=== PATIENT | male | born 1955 | race Caucasian/White ===

== ENCOUNTER → 2016-09-09 | Outpatient (CLI) | payer BC ==
[~2016-09-09] MED LIST: ATOR10TA88 PO; CPR250 PO; CPR500 PO; FLM4 PO; GADAVIST IV PRN; PHEN-876 PO
--- NOTE | 2016-09-09 19:37 | DIAGNOSTIC IMAGING REPORT ---
MRI OF THE BRAIN WITHOUT AND WITH IV CONTRAST CLINICAL HISTORY: Vertigo. Headache. COMPARISON STUDY: MRI the brain June 21, 2007. TECHNIQUE: Utilizing a 1.5 Elaine magnet and dedicated coil, multiplanar, multiecho imaging of the brain was performed pre and postcontrast administration. IV administration of 6.5 mL of Gadavist contrast was uneventful. FINDINGS: There are no areas of restricted diffusion. No acute intracranial hemorrhage, midline shift or mass effect is present. Ventricular system is normal. Basilar cisterns are patent. There are no extra-axial collections. Flow-voids for the major intracranial vessels are present. There are no intracranial masses or areas of pathologic enhancement. A punctate periventricular T2 hypertense focus within the left parietal lobe is unchanged and prior exam of June 21, 2007. Calvarial signal is maintained. Orbits and sinuses are unremarkable. IMPRESSION: Unremarkable MRI of the brain. Electronically signed by: Ramesh Murrell M.D. 09/09/2016 7:36 PM Dictated Date/Time: 09/09/2016 7:27 PM
== END | disposition home or self-care (01) ==
LOC: C.MRI 18:29
PROVIDERS: ATTEND Internal Medicine
DX: R42 Dizziness and giddiness (principal); R51 Headache

== ENCOUNTER 2022-07-19 10:00 | Inpatient (IN) ==
[2022-07-19] MEDS ORDERED: SODIUM CHLORIDE 0.9% 1000ML 1,000 ML IV STA (10:10)
[2022-07-19] MEDS ORDERED: dilTIAZem HCl 5 MG/ML 5 ML VIAL IV STA ×2 (10:10→10:51)
[2022-07-19] MEDS ORDERED: ASPIRIN CHEW 324 MG PO STA (10:12)
--- NOTE | 2022-07-19 10:25 | Emergency Department Note ---
Impression & Plan Atrial fibrillation with rapid ventricular response, Chest pain, Abnormal EKG ED Provider Note NAME: CARL BLUNT AGE: 67 SEX: M : 1955 ARRIVES VIA: Walk-In INFORMANT: Patient, ED PROVIDER(S): Jett Simental DO CHIEF COMPLAINT: Fast heart rate HPI: The patient is a 67-year-old male who presented to the emergency department from his primary care physician's office. The patient scheduled an appointment to have a mole checked on his leg. When he was there he states that he reported to his primary care physician that he has been feeling lightheaded and dizzy especially after exercising. The patient had an EKG done at the office and was found to have a new onset narrow complex tachycardia. He states he does feel some chest discomfort. He also describes some worsening symptoms with exertion. He denies having any lower extremity swelling. He denies having any recent trauma. He has had no fever or cough. He states he has no history of dysrhythmia. The patient states he has been compliant with his outpatient med ications. He has had no recent illnesses including nausea vomiting or diarrhea. ROS: See above HPI for pertinent positives & negatives. A total of 10 systems reviewed and were otherwise negative. PAST MEDICAL HISTORY: See Below PAST SURGICAL HISTORY: See Below FAMILY HISTORY: See Below SOCIAL HISTORY: See Below HOME MEDICATIONS: See Below ALLERGIES: See Below VITALS: See Below PHYSICAL EXAMINATION: GENERAL: Patient is awake alert in no acute distress patient is resting comfortably and showing no signs of anxiety EYES: The conjunctivae are clear. The pupils are round and reactive. EARS, NOSE, MOUTH AND THROAT: The nose is without any evidence of any deformity. Mucous membranes are moist. Tongue is midline. NECK: The neck is nontender and supple. RESPIRATORY: Normal respiratory effort is noted there is no evidence of wheezing rhonchi or rales CARDIOVASCULAR: Tachycardic and regular heart sounds were noted to auscultation. There is no definite murmur. GASTROINTESTINAL: The abdomen is soft. Abdomen is nontender. MUSCULOSKELETAL/EXTREMITIES: There is no evidence of gross deformity full range of motion is noted in the hips and shoulders. SKIN: There is no obvious evidence of any rash. There are no petechiae, pallor or cyanosis noted. NEUROLOGIC: Patient is awake alert and oriented x3 MEDICAL DECISION MAKING: The patient is a 67-year-old male who presented to the emergency department for an evaluation of palpitations. The patient went to see his primary care physician for an unrelated issue. He was noted to have palpitations and lightheadedness. He had an EKG which showed a narrow complex tachycardia. The patient was treated with IV fluids and IV Cardizem in the emergency department. He was reevaluated multiple times. His heart rate had significantly improved but he still had atrial fibrillation. I discussed the patient's laboratory and radiographic studies with him. This is the first episode the patient's had of this. He does not take any medications for heart rate. This reason I discussed this case with the on-call [facility]ist. They have agreed to evaluate the patient in the emergency department for further management and disposition. Triage Nursing notes reviewed. Prior medical records reviewed Vital Signs: reviewed and remarkable for no significant abnormalities Differential diagnosis: Premature contractions, electrolyte abnormality, cardiac dysrhythmia, thyroid dysfunction, pulmonary embolism, infection, gastrointestinal, as well as other pathologies. ER treatment provided: See below Diagnostics interpreted by me: ECG: EKG was obtained in the emergency department. My interpretation is narrow complex tachycardia at [address] segment depressions were noted especially in the inferior leads. There was no PVCs noted. This was compared to a tracing from April 23, 2010 that the patient brought from his primary are physician's office. This tracing revealed sinus rhythm at 60 bpm Cardiac Monitoring: An order was placed for continuous cardiac monitoring. The monitor shows a rate of 64 bpm with sinus rhythm. Laboratory studies: As stated above and show below. Imaging studies: See below. I did independently review the patient's radiographic studies. Consultation(s): I discussed this case with Dr. Villasenor who is on-call for the [facility]ist group. ED COURSE: Procedures: Modified Valsalva was attempted in the emergency department without resolution of the narrow complex tachycardia. Critical Care: I have personally spent greater than 35 minutes of critical care time in the direct management of this patient. This includes bedside care, interpretation of diagnostic studies, and testing, discussion with consultants, patient, and family members, and other required patient management activities. This 35 minutes is in excess of all separately billable procedures. 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 Beliefs That Will Affect Care: None marital status: Current Living Situation: Spouse current occupational status: retired Feels Safe at Home: Yes caffeine: Yes Dental Care, Regularly: Yes Seatbelt Use: always Sunscreen Use: Yes Assistive Devices: Contacts and Glasses Allergies Allergies Allergy/AdvReac Type Severity Reaction Status Date / Time No Known Drug Allergies Allergy Verified 07/19/22 08:59 Home Meds Home Medications Medication Instructions Recorded Confirmed aspirin 81 mg tablet,delayed 81 mg PO Q OTHER DAY 01/20/20 07/19/22 release calcium carbonate 600 mg-vitamin 1 tab PO HS 07/19/22 07/19/22 D3 10 mcg (400 unit) tablet (Calcium 600 + D(3)) omega-3s 350 [id number] 1 cap PO HS 07/19/22 07/19/22 [id number] oil 600 mg capsule (Fish Oil) tadalafil 5 mg tablet 5 mg PO HS 07/19/22 07/19/22 Previous Rx's Medication Instructions Recorded atorvastatin 10 mg tablet 10 mg PO QPM #90 tabs 05/28/22 Results & Data (ED) Vital Signs Vital Signs - 24 hr 07/19/22 10:03 07/19/22 10:31 07/19/22 10:31 Temperature 36.3 C L Temperature Source Temporal Artery Scan Pulse Rate 138 H Pulse Rate [Right Finger] 138 H Pulse Rate from SpO2 Sensor Pulse Rhythm [Right Finger] Regular Pulse Strength [Right Finger] Normal Respiratory Rate 20 18 Respiratory Effort / Characteristics Non-Labored Non-Labored Respiratory Depth Normal Normal Respiratory Pattern Regular Blood Pressure 150/92 H Blood Pressure [Right Arm] 142/89 H Blood Pressure Mean 111 Blood Pressure Mean [Right Arm] 106 Blood Pressure Position [Right Arm] Lying Pulse Oximetry 98 98 Oxygen Delivery Method Room Air Room Air Room Air Sepsis Recent Fever Within 48 Hours No Sepsis New/Unexplained Change in Mental Status N/A Sepsis Action Taken by Nursing No Action Required 07/19/22 10:18 07/19/22 10:20 07/19/22 10:21 Temperature Temperature Source Pulse Rate 139 H 140 H Pulse Rate [Right Finger] Pulse Rate from SpO2 Sensor Pulse Rhythm [Right Finger] Pulse Strength [Right Finger] Respiratory Rate 14 18 Respiratory Effort / Characteristics Respiratory Depth Respiratory Pattern Blood Pressure 142/89 H Blood Pressure [Right Arm] Blood Pressure Mean 106 Blood Pressure Mean [Right Arm] Blood Pressure Position [Right Arm] Pulse Oximetry Oxygen Delivery Method Sepsis Recent Fever Within 48 Hours Sepsis New/Unexplained Change in Mental Status Sepsis Action Taken by Nursing 07/19/22 10:21 07/19/22 10:30 07/19/22 10:40 Temperature Temperature Source Pulse Rate 141 H 112 H 110 H Pulse Rate [Right Finger] Pulse Rate from SpO2 Sensor 141 H 123 H 110 H Pulse Rhythm [Right Finger] Pulse Strength [Right Finger] Respiratory Rate 14 18 10 L Respiratory Effort / Characteristics Respiratory Depth Respiratory Pattern Blood Pressure Blood Pressure [Right Arm] Blood Pressure Mean Blood Pressure Mean [Right Arm] Blood Pressure Position [Right Arm] Pulse Oximetry 99 98 98 Oxygen Delivery Method Sepsis Recent Fever Within 48 Hours Sepsis New/Unexplained Change in Mental Status Sepsis Action Taken by Nursing 07/19/22 10:50 07/19/22 11:06 07/19/22 11:07 Temperature Temperature Source Pulse Rate 114 H Pulse Rate [Right Finger] Pulse Rate from SpO2 Sensor 124 H 136 H Pulse Rhythm [Right Finger] Pulse Strength [Right Finger] Respiratory Rate 15 Respiratory Effort / Characteristics Respiratory Depth Respiratory Pattern Blood Pressure 129/97 Blood Pressure [Right Arm] Blood Pressure Mean 107 Blood Pressure Mean [Right Arm] Blood Pressure Position [Right Arm] Pulse Oximetry 98 98 Oxygen Delivery Method Sepsis Recent Fever Within 48 Hours Sepsis New/Unexplained Change in Mental Status Sepsis Action Taken by Nursing 07/19/22 11:07 07/19/22 11:10 07/19/22 11:10 Temperature Temperature Source Pulse Rate 116 H 139 H Pulse Rate [Right Finger] Pulse Rate from SpO2 Sensor 138 H 138 H Pulse Rhythm [Right Finger] Pulse Strength [Right Finger] Respiratory Rate 21 17 Respiratory Effort / Characteristics Respiratory Depth Respiratory Pattern Blood Pressure 129/100 Blood Pressure [Right Arm] Blood Pressure Mean 109 Blood Pressure Mean [Right Arm] Blood Pressure Position [Right Arm] Pulse Oximetry 93 99 Oxygen Delivery Method Sepsis Recent Fever Within 48 Hours Sepsis New/Unexplained Change in Mental Status Sepsis Action Taken by Shelter Medications Current Medication List: was personally reviewed by me Laboratory Data Attestation: I reviewed the patient's lab results. 07/19/22 10:20 07/19/22 10:20 Lab Results 07/19/22 07/19/22 07/19/22 Range/Units 10:20 10:20 10:20 WBC 5.90 (4.8-10.8) K/ul RBC 4.92 (4.63-6.08) M/uL Hgb 16.4 (14.0-18.0) g/dl Hct 46.3 (40.1-51.0) % MCV 94.1 (80.0-100.0) fL MCH 33.3 (25.0-34.0) pg MCHC 35.4 (32.0-36.0) g/dL RDW Std Deviation 41.1 (36.4-46.3) fL RDW Coeff of Estefany 11.8 (11.5-14.5) % Plt Count 352 (130-400) K/uL MPV 9.0 L (9.4-12.4) fL Immature Gran % (Auto) 0.2 % Neut % (Auto) 71.1 % Lymph % (Auto) 18.1 % Rice % (Auto) 9.2 % Eos % (Auto) 0.7 % Baso % (Auto) 0.7 % Neut # (Auto) 4.20 (1.4-6.5) K/uL Lymph # (Auto) 1.07 L (1.2-3.4) K/uL Rice # (Auto) 0.54 (0.24-0.82) K/uL Eos # (Auto) 0.04 (0-0.50) K/uL Baso # (Auto) 0.04 (0-0.2) K/uL Immature Gran # (Auto) 0.01 (0.00-0.02) K/uL PT 10.7 (9.0-12.0) Seconds INR 1.0 (0.9-1.1) APTT 26.3 (21.0-31.0) Seconds PTT Ratio 1.0 Sodium 133 L (136-145) mmol/L Potassium 4.7 (3.5-5.1) mmol/L Chloride 97 L (98-107) mmol/L Carbon Dioxide 29 (21-32) mmol/L Anion Gap 7 (3-11) BUN 14 (6-23) mg/dl Creatinine 0.89 (0.6-1.4) mg/dl Est Cr Clr Drug Dosing 70.9 ml/min Est GFR ( Amer) 104.0 ml/min Est GFR (Non-Af Amer) 89.7 ml/min BUN/Creatinine Ratio 15.7 (10-20) Glucose 138 H (70-99(Fasting)) mg/dl Calcium 9.6 (8.5-10.1) mg/dl Magnesium 2.1 (1.7-2.4) mg/dl Total Bilirubin 0.5 (0.2-1.0) mg/dl AST 25 (13-39) U/L ALT 21 (7-52) U/L Alkaline Phosphatase 52 (34-104) U/L Troponin I High Sens 13.2 (0-20) pg/ml Total Protein 7.7 (6.0-8.3) gm/dl Albumin 4.4 (3.4-5.0) gm/dl Globulin 3.3 (2.5-4.0) gm/dl Albumin/Globulin Ratio 1.3 (0.9-2) TSH (0.300-4.500) uIu/ml 07/19/22 Range/Units 10:20 WBC (4.8-10.8) K/ul RBC (4.63-6.08) M/uL Hgb (14.0-18.0) g/dl Hct (40.1-51.0) % MCV (80.0-100.0) fL MCH (25.0-34.0) pg MCHC (32.0-36.0) g/dL RDW Std Deviation (36.4-46.3) fL RDW Coeff of Estefany (11.5-14.5) % Plt Count (130-400) K/uL MPV (9.4-12.4) fL Immature Gran % (Auto) % Neut % (Auto) % Lymph % (Auto) % Rice % (Auto) % Eos % (Auto) % Baso % (Auto) % Neut # (Auto) (1.4-6.5) K/uL Lymph # (Auto) (1.2-3.4) K/uL Rice # (Auto) (0.24-0.82) K/uL Eos # (Auto) (0-0.50) K/uL Baso # (Auto) (0-0.2) K/uL Immature Gran # (Auto) (0.00-0.02) K/uL PT (9.0-12.0) Seconds INR (0.9-1.1) APTT (21.0-31.0) Seconds PTT Ratio Sodium (136-145) mmol/L Potassium (3.5-5.1) mmol/L Chloride (98-107) mmol/L Carbon Dioxide (21-32) mmol/L Anion Gap (3-11) BUN (6-23) mg/dl Creatinine (0.6-1.4) mg/dl Est Cr Clr Drug Dosing ml/min Est GFR ( Amer) ml/min Est GFR (Non-Af Amer) ml/min BUN/Creatinine Ratio (10-20) Glucose (70-99(Fasting)) mg/dl Calcium (8.5-10.1) mg/dl Magnesium (1.7-2.4) mg/dl Total Bilirubin (0.2-1.0) mg/dl AST (13-39) U/L ALT (7-52) U/L Alkaline Phosphatase (34-104) U/L Troponin I High Sens (0-20) pg/ml Total Protein (6.0-8.3) gm/dl Albumin (3.4-5.0) gm/dl Globulin (2.5-4.0) gm/dl Albumin/Globulin Ratio (0.9-2) TSH 1.689 (0.300-4.500) uIu/ml Administered Medications Discontinued Medications Aspirin (Aspirin Chew 324 Mg) 324 mg PO NOW STA Stop: 07/19/22 10:13 Last Admin: 07/19/22 10:26 Dose: 324 mg Documented By: AP Diltiazem HCl (Diltiazem Hcl 5 Mg/Ml 5 Ml Vial) 10 mg IV NOW STA Stop: 07/19/22 10:11 Last Admin: 07/19/22 10:27 Dose: 10 mg Documented By: AP Co-signed By: OL Diltiazem HCl (Diltiazem Hcl 5 Mg/Ml 5 Ml Vial) 10 mg IV NOW STA Stop: 07/19/22 10:52 Last Admin: 07/19/22 11:07 Dose: 10 mg Documented By: AP Co-signed By: NEGRITO Sodium Chloride (Nss 1000ml) 1,000 mls @ 999 mls/hr IV .Q1H1M STA Stop: 07/19/22 11:10 Last Infusion: 07/19/22 11:51 Dose: 0 mls/hr Documented By: Admin: 07/19/22 10:26 Dose: 999 mls/hr Documented By: AP Magnesium Sulfate/Dextrose (Magnesium Sulfate / D5w) 1 gm in 100 mls @ 100 mls/hr IV NOW STA Stop: 07/19/22 11:34 Last Infusion: 07/19/22 12:14 Dose: 0 mls/hr Documented By: Admin: 07/19/22 11:07 Dose: 100 mls/hr Documented By: AP Metoprolol Tartrate (Metoprolol Tartrate 1 Mg/Ml Vial) 5 mg IV NOW STA Stop: 07/19/22 11:51 Last Admin: 07/19/22 12:14 Dose: 5 mg Documented By: MIKE Nitroglycerin (Nitroglycerin Sl 0.4 Mg/Tab Tab) 0.4 mg SL NOW STA Stop: 07/19/22 12:01 Last Admin: 07/19/22 12:14 Dose: 0.4 mg Documented By: AP Imaging Data Radiologist's Impression: Chest X-Ray 07/19/22 10:10 XR chest 1V portable CLINICAL HISTORY: Dysrhythmia. COMPARISON STUDY: No previous studies for comparison. FINDINGS: Lung volumes are normal. Lungs are clear. There is no pneumothorax or pleural effusion. Cardiac size is normal. Mediastinal contours are normal. There is no evidence for pulmonary edema. IMPRESSION: No acute cardiopulmonary findings. ACT 112: Negative or not required by law. Electronically signed by: Ramesh Murrell M.D. 07/19/2022 10:44 AM Discharge Plan Visit Data Chief Complaint: Tachycardia Stated Complaint: ELEVATED HEART RATE, DR REF OVER ED Provider: Jett Simental Discharge Problem: Atrial fibrillation with rapid ventricular response, Chest pain, Abnormal EKG Patient Disposition: Being Evaluated by Hospitalist Discharge Instructions Interventions: ED Discharge Assessment Last Done: 07/19/22 15:28
[2022-07-19 10:33] LABS: Basophils # (auto) 0.04 K/uL (0-0.2); Basophils % (auto) 0.7 %; Eosinophils # (auto) 0.04 K/uL (0-0.50); Eosinophils % (auto) 0.7 %; Hematocrit (blood only) 46.3 % (40.1-51.0); Hemoglobin 16.4 g/dl (14.0-18.0); Immature Granulocytes # (auto) 0.01 K/uL (0.00-0.02); Immature Granulocytes % (auto) 0.2 %; Lymphocytes # (auto) 1.07 K/uL (1.2-3.4); Lymphocytes % (auto) 18.1 %; Mean Corpuscular Hemoglobin 33.3 pg (25.0-34.0); Mean Corpuscular Hgb Conc 35.4 g/dL (32.0-36.0); Mean Corpuscular Volume 94.1 fL (80.0-100.0); Monocytes # (auto) 0.54 K/uL (0.24-0.82); Monocytes % (auto) 9.2 %; Neutrophils % (auto) 71.1 %; Platelet Count 352 K/uL (130-400); RDW Coefficient of Variation 11.8 % (11.5-14.5); RDW Standard Deviation 41.1 fL (36.4-46.3); Red Blood Count 4.92 M/uL (4.63-6.08)
[2022-07-19] MEDS ORDERED: MAGNESIUM SULFATE / D5W 1 GM/100 ML BAG IV STA (10:35)
--- NOTE | 2022-07-19 10:45 | XRay Report ---
XR chest 1V portable CLINICAL HISTORY: Dysrhythmia. COMPARISON STUDY: No previous studies for comparison. FINDINGS: Lung volumes are normal. Lungs are clear. There is no pneumothorax or pleural effusion. Car diac size is normal. Mediastinal contours are normal. There is no evidence for pulmonary edema. IMPRESSION: No acute cardiopulmonary findings. ACT 112: Negative or not required by law. Electronically signed by: Ramesh Murrell M.D. 07/19/2022 10:44 AM
[2022-07-19 10:49] LABS: Partial Thromboplastin Time 26.3 Seconds (21.0-31.0); Prothrombin Time 10.7 Seconds (9.0-12.0)
[2022-07-19 10:58] LABS: Albumin Globulin Ratio 1.3 (0.9-2); Albumin Level 4.4 gm/dl (3.4-5.0); BUN Creatinine Ratio 15.7 (10-20); Bilirubin,Total 0.5 mg/dl (0.2-1.0); Calcium 9.6 mg/dl (8.5-10.1); Creatinine Clr Calc Pharmacy 70.9 ml/min; Est GFR (Non-African American) 89.7 ml/min; Globulin 3.3 gm/dl (2.5-4.0); Magnesium 2.1 mg/dl (1.7-2.4); Potassium 4.7 mmol/L (3.5-5.1); Total Protein 7.7 gm/dl (6.0-8.3); Troponin I High Sensitivity 13.2 pg/ml (0-20)
--- NOTE | 2022-07-19 11:09 | History & Physical Report ---
Date of Service July 19, 2022 Assessment & Plan (1) Atrial fibrillation with rapid ventricular response: Plan: New onset atrial fibrillation Patient with mild lightheadedness, was seen by PCP and found to have RVR of 150. No palpitations Intermittent left chest discomfort which did not correlate with exercise, patient reports that he plays up to 3 hours of pickleball regularly with no exertional chest pain or angina High-sensitivity troponin and 2-hour troponin negative EKG: A. fib, early repolarization Reviewed with cardiology. [id number] 1, recommend anticoagulation. Do not recommend rhythm control strategy at this time, patient can follow-up in cardiology office for evaluation of whether initial attempt at rhythm control/mobile telemetry for overall burden with first episode of A. fib is recommended - No uptrending troponin several hours out from onset, will defer heparinization and for stroke prophylaxis patient prefers daily dosing, will start on Xarelto.//Benefits and bleeding precautions discussed Patient is initially received pushes of diltiazem with return of heart rate less than 100, and then increased back to 140. 1 dose of IV Lopressor with good rate control and 7080s, remains in A. fib. Initiate rate control with metoprolol 12.5 mg twice daily, IV on-call for RVR Dynamically stable with improved pain reassessment prior to moved to floor TSH normal 1-2 beers per day, denies binge drinking/high content. No KRYSTINA. No other recent illness. 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 Did have some left-sided chest discomfort without shortness of breath/difficulty breathing which did not correlate with activity but concerning in the setting of A. fib/RVR. Initial and 2-hour troponin negative. Lower suspicion for ACS, continue on telemetry, troponins trended every 6 hours, echo pending. Hyperlipidemia Continue statin No history of hypertension, diabetes. Previously with elevated A1c, recently A1c is normal with diet and exercise. No history of blood clots. Diet: N.p.o. pending initial troponin series/A. fib control --> heart healthy DVT prophylaxis: Xarelto CODE STATUS: Full code Disposition: PCU in case IV rate control agents are required (2) Chest pain: (3) Hypercholesterolemia: (4) Prediabetes: (5) Lyme disease: History of Present Illness Primary Care Provider: Robyn Lynn MD new onset afib Palpitation yesterday with some burning. Initial EKG St depression 2009 EKG: nsr @ 60 EKG from PCP narrow complex tachycardia Cardizem --> improved [id number] 1-2 (pre-DM, diet controlled). No Stroke/TIA/vascular disease/CHF. Male age 67. Playing pickleball today and was lightheaded. Played for several hours yesterday with no issues, nolightheadedness/dizziness. Was seen by PCP for leg lesion, mentioned lightheadedness and EKG showed RVR No shortness of breath or difficulty breathing. Feels a little L sided chest tightness today. Has had similar tightness with indigestion or occasionally with weight lifting. Does not have chest tightness even after playing for several hours of pickleball, up to 3 hours with no problem. +hx of intermittent reflux if he eats to late before bed, at most every few weeks. No bloody or black BMs. At time of assessment is having mild L sided chest tightness waxing/waning, HR 69-75, 5/10 in intensity. Was walking to the bathroom earlier with 0/10 pain. No hx afib or heart problems Hx pre-DM, well controlled with diet/exercise. HLD: on atorvastatin. Cholesterol was 200s and was put on atorvastatin 'years ago' and responded well Elevated PSA mild increase, following as outpt and was spontaneous downtrending. Mild frequency, denies dysuria/straining/burning/difficulty with complete voiding. OK stream. No hx sleep apnea No hx strokes, CVA. No fhx strokes No renal disease BP well controlled without antihypertensives in the past Used to take baby aspirin, now takes every 2-3 days. Was previously on for primary prevention. FHX: Father with 'heart issues but not heart attacks' in 50s, not sure of exactly what these were. Lived to 83yo, did have heart failure in old age. Was on blood thinners, but not sure why. No problems with blood clots, but didn't think he had afib either. Hx DM in mother. Medical History: Reviewed Medications: Reviewed Surgical History: Reviewed Allergies: Reviewed. NKDA. Social History: no tobacco, EtoH 1-2 beers daily. Code Status: Full Code Allergies Allergy/AdvReac Type Severity Reaction Status Date / Time No Known Drug Allergies Allergy Verified 07/19/22 08:59 Home Medications Medication Instructions Recorded Confirmed Type aspirin 81 mg tablet,delayed 81 mg PO Q OTHER DAY 01/20/20 07/19/22 History release calcium carbonate-vitamin D3 1 tab PO DAILY PRN 01/20/20 07/19/22 History [Calcium 600 with Vitamin D3] omega-3 fatty acids [Fish Oil] 1 cap PO DAILY PRN 01/20/20 07/19/22 History tadalafil 5 mg tablet 5 mg PO DAILY #90 tabs 09/27/21 07/19/22 Rx atorvastatin 10 mg tablet 10 mg PO QPM #90 tabs 05/28/22 07/19/22 Rx Past Med/Surg History Medical History Hypercholesterolemia Prediabetes Surgical History H/O oral surgery History of colonoscopy History of tooth extraction WISDOM TEETH Family History Mother Family history of diabetes mellitus Aunt Breast cancer Father Heart disease Prostate cancer Other Gestational diabetes Denies family history of Ovarian cancer Myocardial infarction Colorectal cancer Social History Smoking Status: Never smoker Second Hand Exposure: No; Hx Alcohol Use: Yes Alcohol type: beer Hx Substance Use: No Preferred Language: Wolof Communication Ability: Effective 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 NAD. Cooperative. HEENT: Atraumatic, normocephalic. PERLAA. vision/hearing grossly intact Pulm: CTAB A&P. -wheezes, -rales, -rhonchi. Symmetrical chest rise. No increased work of breathing. No respiratory distress. Cardiac: irregularly irregular. Normal rate initially, then tachy 120 on reassessment prior to leaving room, -mrg. Radial pulses intact and symmetrical. Abdominal: Nontender, nondistended, soft. BS present. Ext: warm, dry, no edema Results & Data Results & Data ([facility]) Vital Signs (Past 12 Hours) Vital Signs Temp Pulse Pulse Resp BP BP Pulse Ox 07/19/22 10:31 138 H 18 142/89 H 98 07/19/22 10:31 07/19/22 10:03 36.3 C L 138 H 20 150/92 H 98 O2 Del Method 07/19/22 10:31 Room Air 07/19/22 10:31 Room Air 07/19/22 10:03 Room Air PG Care Time/CCT Total # of Minutes Spent Total Time Spent with Patient: Total time spent is greater than 50% in coordination of care (as documented) at patient's floor/unit and/or counseling patient: Coding Level of Care Code 18190 INT INP/OBS CARE 3/75MIN Diagnoses Atrial fibrillation with rapid ventricular response I48.91 Chest pain R07.9 Chest pain type: unspecified Hypercholesterolemia E78.00 Prediabetes R73.03 Lyme disease A69.20 (1) Chest pain Chest pain type: unspecified Qualified Code(s): R07.9 - Chest pain, unspecified
[2022-07-19] MEDS ORDERED: METOPROLOL TARTRATE 1 MG/ML VIAL IV STA (11:50)
[2022-07-19] MEDS ORDERED: NITROGLYCERIN SL 0.4 MG/TAB TAB SL STA (12:00)
[2022-07-19] MEDS ORDERED: ASPIRIN 81 MG ECTAB PO SCH ×2 (15:46)
[2022-07-19] MEDS ORDERED: METOPROLOL TARTRATE 1 MG/ML VIAL IV PRN (15:46)
[2022-07-19] MEDS ORDERED: ACETAMINOPHEN 325 MG TAB PO PRN (15:46)
--- NOTE | 2022-07-19 16:05 | Electrocardiogram Report ---
Test Reason : Blood Pressure : / mmHG Vent. Rate : 138 BPM Atrial Rate : 138 BPM P-R Int : 160 ms QRS Dur : 078 ms QT Int : 308 ms P-R-T Axes : 000 019 056 degrees QTc Int : 466 ms Sinus tachycardia Nonspecific ST abnormality Abnormal ECG When compared with ECG of 09-JUN-2005 15:16, Vent. rate has increased BY [address] now depressed in Inferior leads Confirmed by Jett Weber ([id number]) on 07/19/2022 4:05:33 PM Referred By: Robyn Lynn Confirmed By:Jett Weber
--- NOTE | 2022-07-19 16:08 | Electrocardiogram Report ---
Test Reason : Blood Pressure : / mmHG Vent. Rate : 082 BPM Atrial Rate : 092 BPM P-R Int : 000 ms QRS Dur : 086 ms QT Int : 366 ms P-R-T Axes : 000 031 044 degrees QTc Int : 427 ms Poor data quality, interpretation may be adversely affected Atrial fibrillation Minimal voltage criteria for LVH, may be normal variant ST elevation, consider early repolarization Abnormal ECG When compared with ECG of 19-JUL-2022 10:18, (unconfirmed) Atrial fibrillation has replaced Sinus rhythm Vent. rate has decreased BY [address] no longer depressed in Inferior leads Confirmed by Jett Weber ([id number]) on 07/19/2022 4:08:16 PM Referred By: Robyn Lynn Confirmed By:Jett Weber
[2022-07-19] MEDS ORDERED: RIVAROXABAN 20 MG TAB PO SCH (17:00)
[2022-07-19] MEDS ORDERED: ATORVASTATIN 10 MG TAB PO SCH (21:00)
[2022-07-20] MEDS ORDERED: METOPROLOL TARTRATE 25 MG TAB PO SCH (09:00)
[2022-07-20 09:42] LABS: BUN Creatinine Ratio 13.1 (10-20); Calcium 8.9 mg/dl (8.5-10.1); Creatinine Clr Calc Pharmacy 63.2 ml/min; Est GFR (African American) 92.2 ml/min; Est GFR (Non-African American) 79.6 ml/min
[2022-07-20 10:27] LABS: Estimated Average Glucose 123 mg/dl; Hemoglobin A1C 5.9 % (4.5-5.6)
--- NOTE | 2022-07-20 11:32 | XCELERA ---
[id number] \\[id number]
[2022-07-20] MEDS ORDERED: METOPROLOL SUCC 25MG EXT REL TAB PO SCH (12:45)
--- NOTE | 2022-07-20 12:49 | Cardiology Consultation ---
Date of Consultation July 20, 2022 Assessment & Plan (1) Paroxysmal atrial flutter: (2) Paroxysmal atrial fibrillation: (3) Chest pain: Plan ASSESSMENT/PLAN: 1. Paroxysmal atrial flutter: Initial ECG suggests atrial flutter with 2-1 A-V block. Symptom reported as dizziness. Presumably first occurrence based on his description. This later converted to atrial fibrillation. Diagnosis discussed with him. If tolerated, low-dose beta-ruben such as metoprolol succinate 25 mg daily. Chads Vascor is 1. Recommend anticoagulation for stroke risk reduction if no contraindication. 2. Paroxysmal atrial fibrillation: Atrial flutter appeared to convert to atrial fibrillation before spontaneously converting to sinus rhythm. Diagnosis discussed with him. Low-dose beta-ruben if tolerated. Anticoagulation therapy as above. If he should have significant recurrence that is not well rate controlled, or symptomatic, would consider ablation versus antiarrhythmic therapy. 3. Chest pain: Occurred in the setting of atrial flutter/fibrillation with rapid ventricular response. Exercises vigorously without exertional chest discomfort. Presentation not consistent with acute coronary syndrome and sensitivity troponin was not elevated. 4. Disposition: Okay to discharge from a cardiology perspective. We will arrange for 30-day event monitor as an outpatient and follow-up in the office after monitor is completed. Any questions were answered to the best of my abili ty. Patient care discussed with Dr. Lira of the primary hospitalist service. Thank you for allowing me to participate in the care of your patient. Please call for any other questions or concerns. Sincerely, Liam Maldonado M.D. History of Present Illness Reason for Consultation: Atrial fibrillation Requesting Physician: Pio Lira Attending Physician: Pio Lira History of Present Illness Mr. Alcaraz is a very pleasant 67-year-old gentleman with a history significant for dyslipidemia and prediabetes. He was hospitalized on 07/19/2022 with atrial fibrillation. On the day of presentation, he was playing [employer] ball and after a long volley, felt dizzy. He played for additional 45 minutes. Later in the day, he had a scheduled physician appointment and while there, noted to have elevated heart rate. He denies chest pain, shortness of breath, palpitations, syncope, near syncope, edema, or bleeding. He continued to feel different than usual throughout the day. In the emergency department, he reports that he had left-sided chest pressure that would intermittently occur for 2 or 3 hours before subsiding. The day prior to presentation, he admits that he had strenuous cardiovascular exercise for approximately 5 hours and with this, feels that he may have been a bit dehydrated. He exercises daily including pickleball for 2-3 hours or running for 1 hour. Exercise tolerance has been stable without exertional chest discomfort. He spontaneously converted to sinus rhythm during this hospital stay on 07/19/2022 sometime after 2:20 PM, however he was not on monitor at the time. He does not recall the transition from A. fib to sinus rhythm. He denies a history of stroke, TIA, CHF, vascular disease, or formal diabetes diagnosis. He denies hypertension history. Review of systems: As above. Review of systems otherwise negative/unremarkable. Family history: Father had atrial fibrillation. No known premature CAD. Social history: He does not smoke. 1 or 2 beers per day. No drugs. Lives at home with his , lives. 3 children and 1 grandchild. 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 His was present at the bedside. Allergies Allergy/AdvReac Type Severity Reaction Status Date / Time No Known Drug Allergies Allergy Verified 07/19/22 08:59 Home Medications Medication Instructions Recorded Confirmed Type atorvastatin 10 mg tablet 10 mg PO QPM #90 tabs 05/28/22 07/19/22 Rx calcium carbonate 600 mg-vitamin 1 tab PO HS 07/19/22 07/19/22 History D3 10 mcg (400 unit) tablet (Calcium 600 + D(3)) omega-3s 350 [id number]-other 1 cap PO HS 07/19/22 07/19/22 History [id number] oil 600 mg capsule (Fish Oil) tadalafil 5 mg tablet 5 mg PO HS 07/19/22 07/19/22 History metoprolol succinate 25 mg 25 mg PO QAM #30 tabs 07/20/22 Rx tablet,extended release 24 hr rivaroxaban 20 mg tablet (Xarelto) 20 mg PO DAILY #30 tabs 07/20/22 Rx Patient History Medical History Hypercholesterolemia Prediabetes Surgical History H/O oral surgery History of colonoscopy History of tooth extraction WISDOM TEETH Family History Mother Family history of diabetes mellitus Aunt Breast cancer Father Heart disease Prostate cancer Other Gestational diabetes Denies family history of Ovarian cancer Myocardial infarction Colorectal cancer Social History Smoking Status: Never smoker Second Hand Exposure: No; Hx Alcohol Use: Yes Alcohol type: beer Hx Substance Use: No Preferred Language: Micronesian Communication Ability: Effective Feed Research Aide Required: No Beliefs That Will Affect Care: None marital status: Current Living Situation: Spouse current occupational status: retired Feels Safe at Home: Yes caffeine: Yes Dental Care, Regularly: Yes Seatbelt Use: always Sunscreen Use: Yes Assistive Devices: Contacts and Glasses Physical Exam Physical Exam: Gen.: No acute distress. Alert and oriented. HEENT: Anicteric sclera. Neck: No JVD. No bruits. Normal carotid upstrokes bilaterally. Cardiac: PMI was nondisplaced. No ventricular heave. Regular. Normal S1-S2. No murmurs, rubs, or gallops. Pulmonary: Clear to auscultation bilaterally without wheezes, rales, or rhonchi. Abdomen: Soft, nontender, nondistended, with normoactive bowel sounds. No bruits noted. Extremities: 2+ radial pulses bilaterally. 2+ posterior tibialis pulses bilaterally. No edema or cyanosis. Psychiatric: Affect appears appropriate. Results & Data ([facility]) Vital Signs (Past 12 Hours) Vital Signs Temp Pulse Pulse Resp BP Pulse Ox O2 Del Method 07/20/22 11:53 36.3 C L 57 L 18 148/72 H 99 Room Air 07/20/22 08:00 56 L 07/20/22 08:04 36.5 C 79 16 116/77 96 Room Air 07/20/22 02:41 36.6 C 60 18 136/76 99 Room Air Laboratory Results Laboratory Results - last 24 hr 07/19/22 07/19/22 07/19/22 12:53 16:23 16:24 Sodium Potassium Chloride Carbon Dioxide Anion Gap BUN Creatinine Est Cr Clr Drug Dosing Est GFR ( Amer) Est GFR (Non-Af Amer) BUN/Creatinine Ratio Glucose Estimat Average Glucose Hemoglobin A1c Calcium Troponin I High Sens 13.5 14.2 Hepatitis C Ab (EIA) Pending Hep C Ab Signal/Cutoff Pending 07/19/22 07/20/22 07/20/22 19:24 01:17 07:13 Sodium Potassium Chloride Carbon Dioxide Anion Gap BUN Creatinine Est Cr Clr Drug Dosing Est GFR ( Amer) Est GFR (Non-Af Amer) BUN/Creatinine Ratio Glucose Estimat Average Glucose Hemoglobin A1c Calcium Troponin I High Sens 19.3 D 16.1 18.4 Hepatitis C Ab (EIA) Hep C Ab Signal/Cutoff 07/20/22 07/20/22 09:18 09:18 Sodium 136 Potassium 4.0 Chloride 103 Carbon Dioxide 28 Anion Gap 5 BUN 13 Creatinine 0.99 Est Cr Clr Drug Dosing 63.2 Est GFR ( Amer) 92.2 Est GFR (Non-Af Amer) 79.6 BUN/Creatinine Ratio 13.1 Glucose 137 H Estimat Average Glucose 123 Hemoglobin A1c 5.9 H Calcium 8.9 Troponin I High Sens Hepatitis C Ab (EIA) Hep C Ab Signal/Cutoff Diagnostic Findings Telemetry personally reviewed: Atrial fibrillation converting to sinus rhythm on 07/19/2022 sometime after 2:20 PM, off telemetry. ECGs personally reviewed: ECG 07/19/2022 at 10:18 AM: Atrial flutter with 2-1 AV block [address] abnormality. ECG 07/19/2022 at 11:27 AM: A. fib [address] elevation, consider early repolarization. ECG 07/20/2022 at 11:11 AM: Sinus bradycardia [address] elevation, possible early repolarization. Echo 07/20/2022: Normal LV size, wall motion, systolic function. EF 55 to 60%. No significant valvular abnormalities. Chest x-ray 07/19/2022: Image personally reviewed: No infiltrate or pleural effusion. Radiology has interpreted as no acute findings. Admitting H&P reviewed. Medications Administered Current Inpatient Medications Acetaminophen (Acetaminophen 325 Mg Tab) 650 mg PO Q4H PRN PRN Reason: Pain or Fever Stop: 08/18/22 15:45 Atorvastatin Calcium (Atorvastatin 10 Mg Tab) 10 mg PO QPM DELTA Stop: 08/18/22 20:59 Last Admin: 01/06/23 20:16 Dose: 10 mg Metoprolol Succinate (Metoprolol Succ 25mg Ext Rel Tab) 25 mg PO QAM [facility] Stop: 08/19/22 12:44 Metoprolol Tartrate (Metoprolol Tartrate 1 Mg/Ml Vial) 2.5 mg IV Q5M PRN PRN Reason: Tachycardia >130 Stop: 08/18/22 15:45 Rivaroxaban (Rivaroxaban 20 Mg Tab) 20 mg PO DAILY@1700 [facility] Stop: 08/18/22 16:59 Last Admin: 07/19/22 17:06 Dose: 20 mg PG Care Time/CCT Total # of Minutes Spent Total Time Spent with Patient: Total time spent is greater than 50% in coordination of care (as documented) at patient's floor/unit and/or counseling patient: Coding Level of Care Code 86254 INT INP/OBS CARE 2/55MIN Diagnoses Paroxysmal atrial flutter I48.92 Paroxysmal atrial fibrillation I48.0 Chest pain R07.9 Chest pain type: unspecified (1) Chest pain Chest pain type: unspecified Qualified Code(s): R07.9 - Chest pain, unspecified
--- NOTE | 2022-07-20 13:24 | Discharge Summary ---
Date of Service date of admission - July 19, 2022 date of discharge - July 20, 2022 Admission HPI Per Admitting Provider new onset afib Palpitation yesterday with some burning. Initial EKG St depression 2009 EKG: nsr @ 60 EKG from PCP narrow complex tachycardia Cardizem --> improved [id number] 1-2 (pre-DM, diet controlled). No Stroke/TIA/vascular disease/CHF. Male age 67. Playing pickleball today and was lightheaded. Played for several hours yesterday with no issues, nolightheadedness/dizziness. Was seen by PCP for leg lesion, mentioned lightheadedness and EKG showed RVR No shortness of breath or difficulty breathing. Feels a little L sided chest tightness today. Has had similar tightness with indigestion or occasionally with weight lifting. Does not have chest tightness even after playing for several hours of pickleball, up to 3 hours with no problem. +hx of intermittent reflux if he eats to late before bed, at most every few weeks. No bloody or black BMs. At time of assessment is having mild L sided chest tightness waxing/waning, HR 69-75, 5/10 in intensity. Was walking to the bathroom earlier with 0/10 pain. No hx afib or heart problems Hx pre-DM, well controlled with diet/exercise. HLD: on atorvastatin. Cholesterol was 200s and was put on atorvastatin 'years ago' and responded well Elevated PSA mild increase, following as outpt and was spontaneous downtrending. Mild frequency, denies dysuria/straining/burning/difficulty with complete voiding. OK stream. No hx sleep apnea No hx strokes, CVA. No fhx strokes No renal disease BP well controlled without antihypertensives in the past Used to take baby aspirin, now takes every 2-3 days. Was previously on for primary prevention. FHX: Father with 'heart issues but not heart attacks' in 50s, not sure of exactly what these were. Lived to 83yo, did have heart failure in old age. Was on blood thinners, but not sure why. No problems with blood clots, but didn't think he had afib either. Hx DM in mother. Medical History: Reviewed Medications: Reviewed Surgical History: Reviewed Allergies: Reviewed. NKDA. Social History: no tobacco, EtoH 1-2 beers daily. Code Status: Full Code Principal Diagnosis Symptomatic paroxysmal rapid a.fib - resolved, back in NSR Discharge Exam gen - WD, WN, no acute distress neck - no JVD, no thyroid masses mouth - MMM heart - RRR, s1 s2, no murmur lungs - CTA b/l abd - soft NT ND BS+ ext - no edema, pulses 2+ b/l psych - a/o x 3 Discharge Data Allergies Allergy/AdvReac Type Severity Reaction Status Date / Time No Known Drug Allergies Allergy Verified 07/19/22 08:59 Consultations [facility] - Handy Maldonado MD Procedures Performed Echocardiogram - * EF 55-60% * mild LVH * no valvular abnormalities * no diastolic dysfunction * no pericardial effusion Hospital Course (1) Atrial fibrillation with rapid ventricular response: The patient had rapid a.fib at time of ER presentation. It lasted only a few hours and he spontaneously converted back to NSR. He remained in NSR for the rest of his ~24 hour stay. TSH, K, and mag levels were all wnl. Echo showed preserved EF with no valvular abnormalities. CHADsVASc score was 1 (1 point for age), borderline 2 (if his pre-DM is counted). He was seen in consult by Dr Handy Maldonado, [facility]. He advised initiation of metoprolol succinate 25mg daily along with Xarelto 20mg daily for anticoagulation. A 30-day event monitor will be arranged for outpatient use to determine PAF burden. The patient remained hemodynamically stable throughout his brief stay. Troponins were all negative. He was asked to stop his prior aspirin usage. (2) Chest pain: 2nd to rapid a.fib. Despite his discomfort ALL troponin levels were wnl. EKG once in NSR showed no ischemic changes. (3) Hypercholesterolemia: LDL has ranged 80s to low 100s on the last several lipid profile checks in his chart. Continue lipitor 10mg daily as previous. (4) Prediabetes: Hba1c 5.9%. No specific Rx at this time. He is already highly active - exercises multiple times each week and eats well day to day. Simply continue surveillance with PCP at least once - twice each year. Total Time Total Time Spent Total Time Spent (In Minutes): 25 Discharge Plan Discharge Items Patient Disposition: Home - Self-Care Reason For Visit: Atrial Fibrillation Discharge Diagnosis: 1. Episode of Atrial Fibrillation - resolved 2. Pre-diabetes with Hemoglobin A1C of 5.9% (normal <5.7%) Activity: As commented below Activity Comment: gradually increase your activities over the next week Exercise/Sports: Gradually increase as tolerated Non-emergency contact: Primary Care Provider and Pharmacy Helper Call non-emergency contact if: you have any medication questions and your symptoms worsen Follow-up/Referrals: Handy Maldonado MD [Physician] - (see Dr Maldonado in 1-2 months - his office will be calling you with appointment date & time ) Robyn Lynn MD [Primary Care Provider] - 07/31/22 3:00 pm (see your primary care doctor in 1 week will see KAIN Cleveland on 07/31/22 @ 15:00) Diet: Regular Addtl Attending Provider Instructions: Mr Alcaraz, You were hospitalized for an episode of atrial fibrillation ("a.fib"). Fortunately you converted back to normal sinus rhythm shortly after your arrival at [facility]. You then remained in a normal rhythm for the rest of your stay. There are various causes of a.fib including electrolyte abnormalities, overactive thyroid gland, certain heart valve problems, etc. Your electrolytes were normal, your echocardiogram showed normal heart function and healthy valves, your thyroid blood test was normal, etc. You had no evidence of a heart attack while here. You had no evidence of congestive heart failure from the a.fib. You were seen by Dr Liam Maldonado, [facility] Cardiology. He has recommended the start of an anticoagulant (blood thinner) to help prevent blood clot formation in your heart from the a.fib. He also has recommended metoprolol succinate medication for your heart. We are recommending that you wear a heart monitor at home/outside the hospital. The total duration of the heart monitor will be 30 days. This is being done to see if you are having additional runs of a.fib. The monitor will be mailed to your home with instructions on its use. Recommendations - 1. Take Xarelto 20mg once daily starting 07/20/2022. This is your blood thinner. Be sure to bring the coupons with you to the pharmacy. 2. STOP your aspirin at this time. 3. Know that fish oil and Xarelto can interact with one another. You don't need to stop the fish oil, but if you ever need surgery of any kind in the future, you may be asked to hold the fish oil at that time. 4. Take metoprolol succinate 25mg once daily starting 07/20/2022. This is your "Beta ruben" medication for your a.fib. It works by slowing your heart rate. If you ever go back into a.fib hopefully this medication will prevent rapid heart beating. 5. Please see handouts on prediabetes and hemoglobin a1c. Your hemoglobin a1c was 5.9%. This is something your family doctor will follow over time. 6. If you ever go into a.fib and your heart rate persists over 100 for more than a few hours - or if you are having symptoms from the rapid a.fib (dizziness, chest pain, shortness of breath, etc) - please seek medical attention. Follow-up - see separate section It was our pleasure to care for you at [facility]! -Dr Soraya Mcdanieltl Straight Slicing Machine Operator Provider Instructions: Blood Thinner Medication Instructions: Your a.fib condition is often treated with an anticoagulant. Anticoagulants will thin your blood to help prevent clots within your heart. Your blood thinner is "Xarelto." * You should take your medication exactly as directed. * Never skip a dose. * Never take a double dose. If you miss a dose, take it as soon as you remember. * When you shave please use an electric shaver as opposed to a traditional razor as the electric shaver will lead to less bleeding Call your Primary Care doctor or Pharmacy Helper if you experience any of the following: * Chest Pain * Sudden Shortness of Breath * Rapid or pounding heart beat * Fainting * Dizziness * Cough with blood or bloody sputum * Sweating more than normal * Bruises * Heavy or uncontrolled bleeding * Blood in your urine, stool or vomit * Black or tarry stools * Heavy nosebleeds Pending Studies at Discharge: No Stand-Alone Forms: [facility], Smoking Cessation Medications and DC Order Prescriptions: New metoprolol succinate 25 mg Tablet Extended Release 24 Hr 25 mg PO QAM Qty: 30 5RF Xarelto 20 mg Tablet 20 mg PO DAILY Qty: 30 5RF Continued atorvastatin 10 mg tablet 10 mg PO QPM Qty: 90 3RF tadalafil 5 mg Tablet 5 mg PO HS calcium carbonate-vitamin D3 [Calcium 600 + D(3)] 600 mg-10 mcg (400 unit) Tablet 1 tab PO HS Fish Oil 350-600 mg Capsule 1 cap PO HS Discontinued aspirin 81 mg tablet,delayed release (DR/EC) 81 mg PO Q OTHER DAY Rx Instructions: Takes at night with other meds. Discharge Orders: Discharge Order (Routine); Ordered 07/20/22 Ordered By: Pio Atkins/Other Patient Handouts: A1C, Prediabetes, Anticoagulants, AFib Preven ting Stroke, ED Atrial Fibrillation Admission Data Admit Date/Time: 07/19/22 11:16 Attending Provider: Pio Lira Admit Provider: Johnny Mcmullen Primary Care Provider: Robyn Lynn Other Providers: Johnny Mcmullen ; Handy Maldonado Other Interventions: Discharge Summary Assessment (RN) Last Done: 07/20/22 13:26 Coding Level of Care Code HOSP INP/OBS DISCH 30 MIN/LESS Diagnoses Atrial fibrillation with rapid ventricular response I48.91 Chest pain R07.9 Chest pain type: unspecified Hypercholesterolemia E78.00 Prediabetes R73.03
--- NOTE | 2022-07-22 05:55 | Electrocardiogram Report ---
Test Reason : Blood Pressure : / mmHG Vent. Rate : 054 BPM Atrial Rate : 054 BPM P-R Int : 148 ms QRS Dur : 092 ms QT Int : 428 ms P-R-T Axes : 060 047 044 degrees QTc Int : 405 ms Poor data quality, interpretation may be adversely affected Sinus bradycardia ST elevation, consider early repolarization Abnormal ECG When compared with ECG of 19-JUL-2022 11:27, Sinus rhythm has replaced Atrial fibrillation Vent. rate has decreased BY 28 BPM Confirmed by Handy Maldonado ([id number]) on 07/22/2022 5:55:06 AM Referred By: Robyn Lynn Confirmed By:Handy Maldonado
== END 2022-07-20 13:47 | disposition home or self-care (01) | DRG 310 ==
LOC: ED 10:00 → 2S 11:16 → SUATTDRO 11:16 → 2S 15:28

== ENCOUNTER 2023-02-20 06:02 | Observation (INO) ==
--- NOTE | 2023-02-12 15:01 | Anesthesiology Consultation ---
Date of Service February 12, 2023 Assessment & Plan (1) Encounter for pre-operative examination: - COVID screening: Per assessment on 02/12: No known COVID-19 positive contacts or current COVID-19 related symptoms. No recent Covid positive test result. -Xarelto instructions: per surgeon/prescriber -Cardiology visit (09/13/22): "Paroxysmal atrial fibrillation/ flutter: Initial ECG on 07/19/2022 suggested atrial flutter and then appeared to convert to AFib beforespontaneously converting to sinus rhythm. He was symptomatic.No known recurrence since and unremarkable event monitor in that regard. Believes that he is having some mild intolerance to metoprolol. Reduce metoprolol succinate to 12.5 mg daily and if still some intolerance, can discontinue altogether. Continue anticoagulation for stroke risk reduction. he inquired about anticoagulation therapy. If he has recurrent AFib/flutter, anticoagulation therapy would be warranted for stroke risk reduction. If this was lone event, could consider discontinuing. We discussed the challenge of knowing if he should have recurrence are not. For now, he is monitoring with Fitbit for any change in resting heart rate /arrhythmia. Monitor CBC and renal function periodically while on Xarelto.. Disposition: He does not wish to follow-up with Cardiology for now. He would like to follow-up with his PCP going forward, including management of his anticoagulation therapy. Encouraged to call for questions or concerns or if he would like to have future follow-up here." - S/P prostate biopsy (11/27/22): LMA#4 at [facility] - PCP visit (01/17/23): "History of Lyme disease.. Anemia-new acute.. Elevated liver enzymes-new acute.. Reviewed patient's hospitalization records from 12/29/2022 through 01/01/2023.. Patient had extensive blood work done as well as CT scan, chest x-ray.. Somewhat difficult translation of records since they are in [place] however medical terminology is fairly similar and lab values are standard.. Patient was noted to have elevated liver enzymes therefore statin was placed on hold and he was instructed not to drink any alcohol.. Work-up for tickborne illnesses including Lyme, Rickettsia, cytomegalovirus, Marcela-Truong, herpes, negative for any acute infection AST noted to be elevated at 653, ALT noted to be elevated at 949, hemoglobin and hematocrit noted to be decreased.. The above-mentioned abnormalities for routinely checked during his stay and had improved.. He was discharged home on 2 weeks of doxycycline 100 mg twice daily which he completed today.. Patient notes that he is feeling much better.. Blood work reviewed on 01/13/2023 which notes improvement in hemoglobin hematocrit, resolution of AST, mild elevation of ALT.. He was instructed to recheck blood work in about 2 weeks.. He is going to be gone for the next 2 weeks in [place]- monitor symptoms while traveling.. Discussed that it would be reasonable for him to have doxycycline on hand to take prophylactically should he get any tick bites.. Discussed indications to take 200 mg doxycycline for any tick that has been on him for 24-36 hours.. Monitor symptoms with time.. Patient states that there is pending blood work that was to be sent to him upon completion, he will drop this off at our office when he obtains these results" > Anemia with continued improvement and LFTs WNL on subsequent labs 02/04/23* Chart Review Chart Review: Acceptable Risk for Surgery and Patient NOT seen in Pre Admission Testing History Surgery Operation Date: 02/20/23 10:30 Proposed Procedures p Robotic assisted Laparoscopic Radical Retropubic Prostatectomy, Possible Open, Possible Pelvic Lymph Node Dissection - Yang Turcios MD Height/Weight Height: 5 ft 6 in Weight: 58.967 kg Allergies Allergy/AdvReac Type Severity Reaction Status Date / Time No Known Allergies Allergy Verified 02/12/23 14:33 Medications Home Medications Medication Instructions Recorded Confirmed Last Taken atorvastatin 10 mg tablet 10 mg PO QPM #90 tabs 05/28/22 02/12/23 11/26/22 21:00 calcium carbonate 600 mg-vitamin 1 tab PO Q2D 07/19/22 02/12/23 11/25/22 21:00 D3 10 mcg (400 unit) tablet (Calcium 600 + D(3)) omega-3s 350 [id number]-htp-other 1 cap PO Q2D 07/19/22 02/12/23 11/20/22 [id number] oil 600 mg capsule (Fish Oil) metoprolol succinate 25 mg 12.5 mg PO QAM #30 tabs 09/13/22 02/12/23 11/26/22 06:00 tablet,extended release 24 hr tadalafil 5 mg tablet 5 mg PO HS #30 tabs 10/16/22 02/12/23 11/26/22 21:00 rivaroxaban 20 mg tablet (Xarelto) 20 mg PO QAM 11/19/22 02/12/23 11/23/22 tamsulosin 0.4 mg capsule 0.4 mg PO HS 01/17/23 02/12/23 Unknown doxycycline hyclate 100 mg capsule 200 mg PO UD PRN tick bites 02/12/23 02/12/23 Unknown Past Medical History Medical History History of COVID-19 07/2021, symptoms resolved History of skin cancer s/p excision Hx of Lyme disease Hypercholesterolemia Paroxysmal atrial fibrillation Dx 07/[address] Maldonado Taking beta ruben/Xarelto Paroxysmal atrial flutter Prediabetes Prostate cancer Tick bite 12/2022- required hospitalization in [facility] (anemia/elevated LFTs noted- improved/normalized on subsequent labs 02/04/23) Past Family History Family History Mother Family history of diabetes mellitus Aunt Breast cancer Father Prostate cancer Brachytherapy Heart disease Sister No problems noted. Brother No problems noted. Son No problems noted. Daughter No problems noted. Daughter No problems noted. Other Gestational diabetes No family history of adverse response to anesthesia Denies family history of Ovarian cancer Myocardial infarction Colorectal cancer Past Surgical History Surgical History H/O oral surgery Dental Implant History of colonoscopy History of prostate biopsy (11/27/22) [place] teeth removed Social History Smoking Status: Never smoker Do You Dip or Chew Tobacco: No Hx Alcohol Use: Yes Alcohol type: beer alcohol intake frequency: 0-2 drinks per day Hx Substance Use: No substance use type: does not use Lab Results Anesthesia Preop Results Results Anesthesia Widget: WBC 7.43 K/ul (4.8-10.8) 02/04/23 Hgb 13.8 g/dl (14.0-18.0) L 02/04/23 Hct 41.1 % (42.0-52.0) L 02/04/23 Plt 442 K/uL (130-400) H 02/04/23 Na 134 mmol/L (136-145) L 02/04/23 K 3.9 mmol/L (3.5-5.1) 02/04/23 Cl 100 mmol/L (98-107) 02/04/23 CO2 29 mmol/L (21-32) 02/04/23 BUN 16 mg/dl (6-23) 02/04/23 Creat 0.91 mg/dl (0.6-1.4) 02/04/23 Glucose Level 102 mg/dl (70-99(Fasting)) H 02/04/23 Testing Laboratory Results Urine culture (02/04/23)- no growth Electrocardiogram Date: 11/27/22 NSR at 61bpm. Moderate voltage criteria for LVH, may be normal variant. Chest X-Ray Date: 07/19/22 FINDINGS: Lung volumes are normal. Lungs are clear. There is no pneumothorax or pleural effusion. Cardiac size is normal. Mediastinal contours are normal. There is no evidence for pulmonary edema. IMPRESSION: No acute cardiopulmonary findings. Echocardiogram Date: 07/20/22 EF 55-60%. No RWMA. Mild cLVH. No significant valvular disease. Other Testing 28 day hospital monitor Date: 07/25/22-08/23/22 SR with sinus tachycardia. Average HR 70bpm. PACs. No arrhythmia. No A. fib. High HR 161bpm. Low HR 50bpm. Average HR 70bpm. 2% PAC burden.
[~2023-02-20 06:02] MED LIST changes: -ATOR10TA88 PO; -CPR250 PO; -CPR500 PO; -FLM4 PO; -GADAVIST IV PRN; +HEPARIN SOD 5,000 UNIT/0.5 ML VIAL SQ SCH; +LACTATED RINGER'S 1,000 ML IV SCH; -PHEN-876 PO; +ceFAZolin 2000MG 2,000 MG/15 ML SYR IV SCH
[2023-02-20] MEDS ORDERED: HYDROmorphone INJ 2 MG/ML SYR/VIAL IV PRN (06:54)
[2023-02-20] MEDS ORDERED: ePHEDrine sulfate 50 MG/ML AMP IV PRN (06:54)
[2023-02-20] MEDS ORDERED: PROMETHAZINE HCL 12.5 MG in SODIUM CHLORIDE 0.9% 50 ML IV PRN (06:54)
[2023-02-20] MEDS ORDERED: NALOXONE HCL 0.4 MG/1 ML VIAL/CARP IV PRN (06:54)
[2023-02-20] MEDS ORDERED: ATROPINE SULFATE 0.1 MG/ML 10ML SYR IV PRN (06:54)
--- NOTE | 2023-02-20 06:59 | History & Physical Report ---
Date of Service February 20, 2023 Assessment & Plan (1) Prostate cancer: Plan We reviewed the plan for robot-assisted radical prostatectomy with bilateral pelvic lymph node dissection. We reviewed risks of bleeding, infection, injury to nearby structures, need for additional procedures, changes in urinary continence, changes in erectile function, need for catheter. He expressed understanding and willingness to proceed with surgery. History of Present Illness Primary Care Provider: Robyn Lynn MD This is a 67-year-old male followed by urology for prostate cancer. He presents to the OR today for radical prostatectomy. He denies any changes in his health. Allergies Allergy/AdvReac Type Severity Reaction Status Date / Time No Known Allergies Allergy Verified 02/20/23 06:27 Home Medications Medication Instructions Recorded Confirmed Type atorvastatin 10 mg tablet 10 mg PO QPM #90 tabs 05/28/22 02/20/23 Rx calcium carbonate 600 mg-vitamin 1 tab PO Q2D 07/19/22 02/20/23 History D3 10 mcg (400 unit) tablet (Calcium 600 + D(3)) omega-3s 350 or-aze-mty-other 1 cap PO Q2D 07/19/22 02/20/23 History [id number] oil 600 mg capsule (Fish Oil) metoprolol succinate 25 mg 12.5 mg PO QAM #30 tabs 09/13/22 02/20/23 Rx tablet,extended release 24 hr rivaroxaban 20 mg tablet (Xarelto) 20 mg PO QAM 11/19/22 02/20/23 History tamsulosin 0.4 mg capsule (Flomax) 0.4 mg PO HS 01/17/23 02/20/23 History doxycycline hyclate 100 mg capsule 200 mg PO UD PRN tick bites 02/12/23 02/20/23 History (Vibramycin) tadalafil 5 mg tablet (Cialis) 5 mg PO HS 02/20/23 02/20/23 History Past Med/Surg History Medical History History of COVID-19 07/2021, symptoms resolved History of skin cancer s/p excision Hx of Lyme disease Hypercholesterolemia Paroxysmal atrial fibrillation Dx 07/[address] Maldonado Taking beta ruben/Xarelto Paroxysmal atrial flutter Prediabetes Prostate cancer Tick bite 12/2022- required hospitalization in [facility] (anemia/elevated LFTs noted- improved/normalized on subsequent labs 02/04/23) Surgical History H/O oral surgery Dental Implant History of colonoscopy History of prostate biopsy (11/27/22) [place] teeth removed Family History Mother Family history of diabetes mellitus Aunt Breast cancer Father Prostate cancer Brachytherapy Heart disease Sister No problems noted. Brother No problems noted. Son No problems noted. Daughter No problems noted. Daughter No problems noted. 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 Physical Exam Constitutional: well developed and well nourished; no acute distress Eyes: + anicteric sclerae; pupils not irregular Respiratory: normal respiratory effort; no respiratory distress, does not use accessory muscles and no cough Cardiovascular: well perfused Gastrointestinal (Abdomen): Inspection/Auscultation: abdomen normal to inspection; abdomen not distended Musculoskeletal: Extremities: extremities normal to inspection Skin: normal turgor; no rashes and no lesions Neurologic: moves all extremities and awake Psychiatric: Orientation: alert and oriented x 3 Results & Data Vital Signs (Past 12 Hours) Vital Signs Temp Pulse Resp BP Pulse Ox O2 Del Method 02/20/23 06:30 36.8 C 60 18 134/74 98 Room Air
[2023-02-20] MEDS ORDERED: fentaNYL citrate PF 100 MCG/2 ML VIAL ONE (07:10)
[2023-02-20] MEDS ORDERED: ONDANSETRON INJ 2 MG/ML 2 ML VIAL ONE (07:10)
[2023-02-20] MEDS ORDERED: LIDOCAINE 2% 2 ML VIAL/AMP(20MG/ML) INFIL ONE (07:10)
[2023-02-20] MEDS ORDERED: MIDAZOLAM HCL 1 MG/ML 2ML VIAL ONE (07:10)
[2023-02-20] MEDS ORDERED: PROPOFOL IV EMULSION 10 MG/ML 20 ML VIAL IV ONE (07:10)
[2023-02-20] MEDS ORDERED: SUGAMMADEX SODIUM 200 MG/2 ML VIAL IV ONE (07:10)
[2023-02-20] MEDS ORDERED: DEXAMETHASONE SOD INJ 4 MG/ML VIAL ONE (07:10)
[2023-02-20] MEDS ORDERED: ROCURONIUM BROMIDE 10 MG/ML 5 ML VIAL IV ONE (07:10)
[2023-02-20] MEDS ORDERED: BUPIVACAINE 0.5 % 5 MG/1 ML MPF 30ML VIAL ONE (07:24)
[2023-02-20] MEDS ORDERED: HYDROmorphone INJ 2 MG/ML SYR/VIAL ONE (08:06)
[2023-02-20] MEDS ORDERED: GLYCOPYRROLATE 0.2 MG/ML VIAL ONE (08:08)
[2023-02-20] MEDS ORDERED: KETAMINE 50 MG/5 ML SYRINGE ONE (08:18)
[2023-02-20] MEDS ORDERED: LABETALOL HCL IV 5 MG/ML 20ML IV ONE (09:40)
--- NOTE | 2023-02-20 12:10 | Operative Report ---
PG Post Operative Report Pre & Post Diagnosis Operation Date: 02/20/23 07:30 Pre-Op Diagnosis: Prostate cancer Post-Op Diagnosis: Prostate cancer I identified the patient and participated in the time-out.: Yes Procedure Operation Date: 02/20/23 07:30 Actual Procedures p Robotic assisted laparoscopic radical retropubic prostatectomy with pelvic lymph node dissection - Yang Turcios MD Surgeon Yang Turcios MD Contingents Supervisor CLAUDIA Jeronimo Estimated Blood Loss 100 Findings Consistent with Post-Op Diagnosis Specimens 1) periprostatic fat 2) right pelvic lymph nodes 3) left pelvic lymph nodes 4) prostate, vas deferens, seminal vesicles Drains Mack catheter per urethra Anesthesia Type General Complications none Disposition Accompanied Patient To Recovery: Yes Disposition: Recovery Room Indications This is a 67-year-old male with recent prostate biopsy demonstrating grade group 4 prostate cancer. Staging studies did not identify any metastatic disease. He presents to the OR today for robot-assisted radical prostatectomy. Description of Procedure The patient was identified in the preoperative holding area and informed consent was confirmed. He was then brought to the operating room where general anesthesia was initiated. He was placed supine on the operating room table with all pressure points appropriately padded. His abdomen and genitalia were prepped and draped in the usual sterile fashion and a timeout was performed. A 2 cm incision was made above the umbilicus and then a Veress needle was used to obtain access to the abdomen. Proper position was confirmed with the drop test and low initial insufflation pressure. The abdomen was insufflated with CO2 to a pressure of 12 mmHg. An 8 mm robotic port was placed in the incision and the robotic camera was inserted. The abdominal cavity was surveyed, demonstrating a couple sigmoid adhesions in the left lower quadrant. No intra- abdominal injuries were appreciated. The remaining robotic ports were placed under direct visualization, with 2 robotic ports on the left side and 1 robotic port on the right. A 12 mm assist ant port was placed on the right side as well, and a 5 mm parts room assistant port was placed in the right upper quadrant. The robot was then docked. The sigmoid adhesions were divided sharply. Using electrocautery, the bladder was then dropped from the anterior wall of the abdomen, exposing the space of Retzius. This dissection was carried down to expose the pelvic brim and subsequently the anterior surface of the prostate and the endopelvic fascia. The fat overlying the anterior of the prostate was removed and sent for pathologic analysis, labeled as 'periprostatic fat'. The endopelvic fascia was then divided on each side to expose the lateral aspects of the prostate and the lateral aspects of the pedicles. A single 3-0 V-Loc suture was used to ligate the dorsal venous complex to prevent backbleeding in subsequent steps. The fourth arm of the robot was then used to put some gentle traction on the bladder, and the bladder neck was identified. Using electrocautery, the anterior bladder neck was dissected to expose the Mack catheter, whose tip was removed from the bladder and held anteriorly. The posterior bladder neck dissection was then completed. At this point bilateral vas deferens were exposed and isolated. The vas deferens were cauterized and then divided. Bilateral seminal vesicles were dissected out as well. Denonvilliers fascia was then divided and the posterior prostate dissection was carried up as far as possible toward the urethra. The pedicles were then divided using combination of clips and sharp dissection, trying to use minimal electrocautery. On the right side, a non-nerve sparing approach was used. On the left side, a nerve sparing approach was used. Attention was turned anteriorly and the dorsal venous complex was divided using sharp dissection and electrocautery. The urethra was isolated and then divided sharply. At this point, the prostate was free and was placed in a specimen bag. Bilateral pelvic lymph node dissection was then performed, and the payt tissue was sent for pathologic analysis. He had somewhat scant little tissue bilaterally. The pelvis was inspected and meticulous hemostasis was ensured. Double-armed V- Loc suture was then used to re-anastomose the bladder neck with the urethra. Once this was complete, the anastomosis was tested by instilling 120 mL of normal saline into the bladder. Satisfied that the anastomosis was watertight, the catheter balloon was inflated with 10 mL of normal saline. A "marissa" style stitch was then used to make a peritoneal window on each side, with the hope of preventing future lymphocele formation. The robot was then undocked. The supraumbilical incision was extended and the prostate was extracted. 0 Vicryl suture was then used to close the fascia at this incision. All skin incisions were closed with 4-0 Monocryl suture and then a layer of Dermabond was applied. The patient was then awakened from anesthesia and was brought to the PACU in stable condition. CLAUDIA Jeronimo acted as the bedside parts room assistant for the duration of the case. She assisted with gaining access, providing retraction and suction. Passing in sutures and applying clips as needed. She also helped with specimen extraction and closing. I attest to the content of the Intraoperative Record and any orders documented therein. Any exceptions are noted below.
[2023-02-20] MEDS ORDERED: IBUPROFEN 200 MG TAB PO PRN (12:14)
--- NOTE | 2023-02-20 12:28 | Anesthesiology Progress Note ---
Date of Service February 20, 2023 Anesthesia Post Procedure Vital Signs Vital Signs: Temp Pulse Resp BP Pulse Ox O2 Del Method O2 Flow Rate 02/20/23 12:15 69 21 144/85 H 100 Oxymask 10 02/20/23 12:05 73 19 137/79 100 Oxymask 02/20/23 11:56 36.3 C L 74 12 129/79 100 Oxymask 02/20/23 06:30 36.8 C 60 18 134/74 98 Room Air Transfer of Care Handoff Completed per policy Notes Mental Status: alert / awake / arousable Patient Amnestic to Procedure: Yes Nausea / Vomiting: adequately controlled Pain: adequately controlled Airway Patency, RR, SpO2: stable & adequate BP & HR: stable & adequate Hydration State: stable & adequate Anesthetic Complications: no major complications apparent and Pt Satisfied with anesthetic care
[2023-02-20] MEDS ORDERED: MoRPHine SULFATE 2 MG/ML CARP IV PRN (12:52)
[2023-02-20] MEDS ORDERED: ONDANSETRON INJ 2 MG/ML 2 ML VIAL IV PRN (12:52)
[2023-02-20] MEDS ORDERED: oxyCODONE HCL IR 5 MG TAB (IMMEDIATE RELEASE) PO PRN ×2 (12:52)
[2023-02-20] MEDS: LACTATED RINGER'S 1,000 ML IV SCH ×2 (13:27→19:53)
[2023-02-20] MEDS: MoRPHine SULFATE 4 MG/ML 1 ML CARP\\VIAL IV PRN (13:33)
[2023-02-20] MEDS: ceFAZolin 2000MG 2,000 MG/15 ML SYR IV SCH ×2 (15:35→23:57)
[2023-02-20] MEDS ORDERED: PHENAZOPYRIDINE HCL 200 MG TAB PO STA (16:09)
[2023-02-20] MEDS: ACETAMINOPHEN 325 MG TAB PO SCH ×2 (16:30→23:57)
[2023-02-20] MEDS: HEPARIN SOD 5,000 UNIT/0.5 ML VIAL SQ SCH (20:17)
[2023-02-20] MEDS: DOCUSATE SODIUM 100 MG CAP PO SCH (20:17)
[2023-02-20] MEDS ORDERED: ATORVASTATIN 10 MG TAB PO SCH (21:00)
[2023-02-21] MEDS: ACETAMINOPHEN 325 MG TAB PO SCH (05:40)
[2023-02-21] MEDS: LACTATED RINGER'S 1,000 ML IV SCH (05:40)
[2023-02-21] MEDS: MoRPHine SULFATE 4 MG/ML 1 ML CARP\\VIAL IV PRN (05:47)
[2023-02-21 08:07] LABS: Basophils # (auto) 0.02 K/uL (0-0.2); Basophils % (auto) 0.2 %; Eosinophils # (auto) 0.02 K/uL (0-0.50); Eosinophils % (auto) 0.2 %; Hemoglobin 14.6 g/dl (14.0-18.0); Immature Granulocytes # (auto) 0.03 K/uL (0.01-0.20); Immature Granulocytes % (auto) 0.3 %; Lymphocytes # (auto) 1.45 K/uL (1.2-3.4); Lymphocytes % (auto) 14.5 %; Mean Corpuscular Hemoglobin 31.9 pg (25.0-34.0); Mean Corpuscular Volume 93.9 fL (80.0-100.0); Mean Platelet Volume 10.2 fL (9.4-12.4); Monocytes # (auto) 0.66 K/uL (0.11-0.59); Monocytes % (auto) 6.6 %; Neutrophils # (auto) 7.79 K/uL (1.40-6.50); Neutrophils % (auto) 78.2 %; Platelet Count 273 K/uL (130-400); RDW Coefficient of Variation 13.4 % (11.5-14.5); RDW Standard Deviation 45.9 fL (36.4-46.3); Red Blood Count 4.58 M/uL (4.70-6.10); White Blood Count 9.97 K/ul (4.8-10.8)
[2023-02-21] MEDS: HEPARIN SOD 5,000 UNIT/0.5 ML VIAL SQ SCH (08:18)
[2023-02-21] MEDS: DOCUSATE SODIUM 100 MG CAP PO SCH (08:19)
[2023-02-21 08:23] LABS: BUN Creatinine Ratio 10.3 (10-20); Calcium 8.8 mg/dl (8.6-10.3); Creatinine Clr Calc Pharmacy 77.6 ml/min; Est GFR (African American) 109.8 ml/min; Est GFR (Non-African American) 94.7 ml/min; Potassium 3.8 mmol/L (3.5-5.1)
[2023-02-21] MEDS ORDERED: METOPROLOL SUCC 25MG EXT REL TAB PO SCH (09:00)
--- NOTE | 2023-02-21 09:33 | Urology Progress Note ---
Date of Service February 21, 2023 Assessment & Plan (1) Prostate cancer: Plan Postop day #1 status post robotic prostatectomy with Dr. Turcios. - Doing well, progressing as expected - Afebrile and hemodynamically stable. - Lab work reviewed -white count 9.97, hemoglobin 14.6, creatinine 0.78. - Mack draining clear yellow urine with good output. - Tolerating diet - Ambulating without issue - Minimal pain, managed with medication. - Patient is stable for discharge home today with Mack catheter. - Discharge instructions reviewed, all questions were answered. - Will arrange appropriate postoperative follow-up. Admission and Anticipated Discharge Date Admission Date: February 20, 2023 Supervising Physician Co-Signing Physician Notes I have discussed Mr. Alcaraz's case with CLAUDIA Jeronimo and agree with the above documentation. He is doing well s/p radical prostatectomy. Should be appropriate for discharge home today. -Yang Turcios MD. Subjective Patient examined at bedside this a.m. Awake, resting bed on arrival. No acute distress. Reports mildmoderate abdominal pain, manageable with medication. Incisions appropriate. Mack catheter intact, draining clear yellow urine. Tolerating diet. Ambulating without issue. Belching, no flatus. Denies fevers, chills, nausea, vomiting. Eager to go home. Review of Systems Constitutional: as per Subjective / HPI Gastrointestinal: as per Subjective / HPI Genitourinary: + as per Subjective / HPI Physical Exam Constitutional: no acute distress Respiratory: no respiratory distress and no labored breathing Gastrointestinal (Abdomen): Percussion/Palpation: abdomen soft; abdomen nontender Incisions appropriate. Dermabond intact. Skin: No visible rashes or lesions to exposed skin areas Neurologic: moves all extremities and awake Psychiatric: A+Ox3, euthymic affect Genitourinary: Mack intact, urine is clear yellow Results & Data Vital Signs (Past 12 Hours) Vital Signs Temp Pulse Resp BP Pulse Ox O2 Del Method 02/21/23 07:00 36.8 C 66 16 147/74 H 97 Room Air 02/21/23 04:20 36.9 C 62 18 178/58 H 98 Room Air 02/20/23 23:58 36.6 C 68 14 158/72 H 97 Room Air PG Care Time/CCT Total # of Minutes Spent Total Time Spent with Patient: Total time spent is greater than 50% in coordination of care (as documented) at patient's floor/unit and/or counseling patient: Coding Level of Care Code None Diagnoses Prostate cancer C61
--- NOTE | 2023-02-21 12:12 | Discharge Summary ---
Date of Service February 21, 2023 Admission HPI Per Admitting Provider This is a 67-year-old male followed by urology for prostate cancer. He presents to the OR today for radical prostatectomy. He denies any changes in his health. Admission Exam Per Admitting Provider Constitutional: well developed and well nourished; no acute distress Eyes: + anicteric sclerae; pupils not irregular Respiratory: normal respiratory effort; no respiratory distress, does not use accessory muscles and no cough Cardiovascular: well perfused Gastrointestinal (Abdomen): Inspection/Auscultation: abdomen normal to inspection; abdomen not distended Musculoskeletal: Extremities: extremities normal to inspection Skin: normal turgor; no rashes and no lesions Neurologic: moves all extremities and awake Psychiatric: Orientation: alert and oriented x 3 Principal Diagnosis Prostate Cancer Discharge Exam Constitutional no acute distress Respiratory no respiratory distress and no labored breathing Gastrointestinal (Abdomen) Percussion/Palpation: abdomen soft; abdomen nontender Incisions appropriate, Dermabond intact Neurologic moves all extremities and awake Psychiatric A+Ox3, euthymic affect Genitourinary Perla draining clear yellow urine Discharge Data Allergies Allergy/AdvReac Type Severity Reaction Status Date / Time No Known Allergies Allergy Verified 02/20/23 06:27 Procedures Performed Operation Date: 02/20/23 07:30 Actual Procedures p Robotic assisted laparoscopic radical retropubic prostatectomy with pelvic lymph node dissection(Not Applicable) - Yang Turcios MD Hospital Course (1) Prostate cancer: Plan 67-year-old male admitted status post robotic prostatectomy with Dr. Turcios. Patient tolerated procedure well. No acute issues postoperatively. He remained afebrile and hemodynamically stable. Postoperative labs were appropriate. Tolerated diet. Ambulated without issue. Reported minimal pain. Incisions were appropriate. Catheter draining clear yellow urine. Patient was discharged home on postop day #[address] catheter in [address]. He was in stable condition at time of discharge. Discharge instructions were reviewed and all questions were answered. Total Time Total Time Spent Total Time Spent (In Minutes): 15 Discharge Plan Discharge Items Patient Disposition: Home - Self-Care Reason For Visit: Prostate Cancer Discharge Diagnosis: Prostate cancer Activity: Per Instructions section Non-emergency contact: Urologist Call non-emergency contact if: your pain is not controlled and your temperature is above 101 Follow-up/Referrals: Yang Turcios MD [Physician] - Robyn Lynn MD [Primary Care Provider] - Diet: Regular Addtl Attending Provider Instructions: The surgery you had was: Robot-assisted radical prostatectomy with bilateral pelvic lymph node dissection. Please take all medications as prescribed and keep all follow-ups as scheduled. Please call our office at [phone] with any questions, concerns or need to reschedule appointments for any reason. We are happy to assist you Medications: Please take all medications as prescribed. For pain control, you can take tylenol every 6 hours. You can also take ibuprofen every 6 hours. If you have been prescribed a narcotic pain medication, please take this according to the instructions on the label. You have been prescribed a single dose of antibiotics (Bactrim) to be taken 1 hour prior to your appointment for perla catheter removal. Activity: We recommend having someone with you for the first few days after surgery to help care for you. For the first 2 weeks after surgery, we would like you to get up and walk around your house. However, we recommend limit physical activity that would increase your heart rate. This will allow your body to rest and heal. Take naps if you feel tired. Don't lift anything heavier than 10 pounds, mow the law or ride a bicycle until your follow-up appointment. Please avoid long car rides. Home Care: Unless directed otherwise, drink 6 to 8 glasses of water a day (enough to keep your urine light colored). This will also help keep a healthy flow of urine. We recommend using a stool softener such as colace or miralax for the first two weeks to avoid constipation. Perla Catheter or Suprapubic Catheter care: Keep the catheter well secured with either a leg back or leg strap with large bag. Empty your bag when it's about half full. You may notice some blood in the bag. This is normal after surgery and while the catheter is in place. Use mild soap (such as Dove or Dial) and water to wash the catheter and the head of your penis daily, or more frequently if needed. Return to your normal diet, we encourage good protein intake to promote healing. You may shower as normal. Please avoid tub baths or soaking until catheter removed and incisions well healed. Wearing sweat pants while you have the catheter is recommended, they will be more comfortable. Follow-up We will have you come to the office in approximately 7 days for catheter removal. - Please remember to take your dose on antibiotics 1 hour prior to this appointment. We will discuss the pathology results at that visit. We will schedule an office visit in approximately 3 months with PSA prior. Call [facility] [place] [facility] at [phone] right away if you have any of the following: Chest pain or trouble breathing (call 911 or go to the hospital) Fever of 101F or higher, uncontrolled vomiting Heavy bleeding, clots, or bright red blood from the catheter Catheter that falls out or stops draining Foul-smelling discharge from your catheter Redness, swelling, warmth, or increased pain at your incision site Drainage, pus, or bleeding from your incision Pending Studies at Discharge: No Stand-Alone Forms: [facility] Pain [facility], Smoking Cessation Medications and DC Order Prescriptions: New sulfamethoxazole-trimethoprim [Bactrim DS] 800-160 mg tablet 1 tab PO ONCE 1 Days Qty: 1 0RF oxycodone 5 mg tablet 5 mg PO Q8H PRN (Reason: pain) Qty: 7 0RF Continued atorvastatin 10 mg tablet 10 mg PO QPM Qty: 90 3RF metoprolol succinate 25 mg tablet extended release 24 hr 12.5 mg PO QAM Qty: 30 5RF tamsulosin [Flomax] 0.4 mg capsule 0.4 mg PO HS calcium carbonate-vitamin D3 [Calcium 600 + D(3)] 600 mg-10 mcg (400 unit) Tablet 1 tab PO Q2D Fish Oil 350-600 mg Capsule 1 cap PO Q2D Xarelto 20 mg tablet 20 mg PO QAM Patient Comments: HAS HOLDING INSTRUCTIONS FOR UPCOMING SURGERY. doxycycline hyclate [Vibramycin] 100 mg capsule 200 mg PO UD PRN (Reason: tick bites) tadalafil [Cialis] 5 mg tablet 5 mg PO HS Discharge Orders: Discharge Order (Routine); Ordered 02/21/23 Ordered By: Mallory Atkins/Other Patient Handouts: Indwelling Urinary Catheter Dc, Leg Bag Care Dc Admission Data Admit Date/Time: 02/20/23 11:59 Attending Provider: Yang Turcios Admit Provider: Yang Turcios Primary Care Provider: Robyn Lynn Other Interventions: Discharge Summary Assessment (RN) Last Done: 02/21/23 10:34 Coding Level of Care Code 65668 IN/OBS DISCH 30 MIN/LESS Diagnoses Prostate cancer C61
== END 2023-02-21 11:15 | disposition home or self-care (01) ==
LOC: ASU 06:02 → 3E 11:59 → INTOOBSV 11:59